=== PATIENT | male | born 1935 | race Two or more races ===

== ENCOUNTER 2016-07-25 23:28 | Emergency (ER) | payer BC ==
[~2016-07-25 23:28] MED LIST: *UNABLE1; ASAB PO; B121000P IM; CO Q-10100 MG PO; CO Q-10200 MG PO; COQ-10200 MG PO; CORDARONE PO; COREG3 PO; COREGCR20 PO; COUMADIN4 MG; COUMADIN4 MG PO; COZ50 PO; ELIQUIS 5 MG TAB5 MG PO; FOLIC ACID400 MC1 PO; HYZAAR 50/12.51 TAB PO; KLOR-CON M2020 MEQ PO; L40 PO; LIPITOR20 PO; MULTI-VIT HP OR; MULTIPLE VIT PO; MULTIVIT/MIN PO; PLAVIX PO; SM FLAX SEED1000 MG PO
[2016-07-25 23:43] LABS: BASOPHILS 0.1 %; BASOPHILS ABSOLUTE 0.01 10/3/uL (0.0-0.16); EOSINOPHILS 2.4 %; EOSINOPHILS ABSOLUTE 0.17 10/3/uL (0.0-0.53); ER CBC TAT 0 Hrs 05 Mins; HEMATOCRIT 38.6 % (40.0-51.0); HEMOGLOBIN 12.4 g/dL (13.6-17.8); IMMATURE GRANULOCYTES 0.4 %; IMMATURE GRANULOCYTES ABSOLUTE 0.03 10/3/uL (0.0-0.11); LYMPHOCYTES 32.4 %; LYMPHOCYTES ABSOLUTE 2.28 10/3/uL (0.67-4.30); MANUAL DIFF NO %; MEAN CORPUS HGB CONC 32.1 g/dL (32.0-36.0); MEAN CORPUSCULAR HEMOGLOB 22.6 pg (26.0-34.0); MEAN CORPUSCULAR VOLUME 70.4 fL (80-100); MEAN PLATELET VOLUME 9.9 fL (9.2-13.0); MONOCYTES 11.6 %; MONOCYTES ABSOLUTE 0.82 10/3/uL (0.21-1.20); NEUTROPHILS 53.1 %; NEUTROPHILS ABSOLUTE 3.73 10/3/uL (2.02-8.40); PLATELET COUNT 259 10/3/uL (150-400); RBC DISTRIBUTION WIDTH 15.9 % (12.0-16.0); RED CELL COUNT 5.48 10/6/uL (4.7-6.1)
[2016-07-25 23:49] LABS: INTERNATIONAL NORMAL RATI 1.1 UNITS (-); PARTIAL THROMBO TIME 29.4 SEC (22.5-37.2); PROTIME (NOT ORD) 14.3 SEC (12.0-14.5)
[2016-07-25 23:58] LABS: CALCIUM, SERUM 8.5 MG/DL (8.5-10.4); CHLORIDE, SERUM 106 MMOL/L (96-112); CO2 (CARBON DIOXIDE) 32 MMOL/L (24-34); GLUCOSE, SERUM 93 MG/DL (60-99); POTASSIUM, SERUM 3.9 MMOL/L (3.5-5.3); SODIUM, SERUM 143 MMOL/L (135-148)
[2016-07-25 23:59] LABS: BUN (BLOOD UREA NITROGEN) 31 MG/DL (6-23); CREATININE 1.63 MG/DL (0.70-1.30); GFR AFRICAN AMERICAN 45 ML/MIN (>=60); GFR NON AFRICAN AMERICAN 39 ML/MIN (>=60)
[2016-07-26 00:01] LABS: CHEST PAIN PROFILE TAT 0 Hrs 23 Mins; TROPONIN I 0.08 NG/ML (<0.05)
[2016-07-26 02:43] LABS: D-DIMER QUANTITATIVE 0.42 ug/mLFEU (< 0.50)
== END 2016-07-26 03:40 | disposition home or self-care (01) ==
LOC: ER 23:28
PROVIDERS: Specialist
DX: M79.622 Pain in left upper arm (principal); R79.89 Other specified abnormal findings of blood chemistry; I10 Essential (primary) hypertension; I48.91 Unspecified atrial fibrillation; E78.5 Hyperlipidemia, unspecified; Z86.73 Personal history of transient ischemic attack (TIA), and cerebral infarction without residual deficits; Z95.5 Presence of coronary angioplasty implant and graft; Z79.899 Other long term (current) drug therapy
CPT/HCPCS: 71020; 80048; 83735; 84484; 85025; 85379; 85610; 85730; 93005; 99285; A9270-GY